=== PATIENT | female | born 1980 | race Caucasian/White ===

== ENCOUNTER → 2020-06-11 | Outpatient (CLI) | payer OTHER ==
[~2020-06-11] MED LIST: No meds per pt.
[2020-06-11 09:18] LABS: BASOPHILS % (AUTO) 1 % (0-1); EOSINOPHILS % (AUTO) 2 % (1-7); LYMPHOCYTES % (AUTO) 30 % (22-44); MEAN CORPUSCULAR HEMOGLOBIN 30.9 pg (27.0-34.8); MEAN CORPUSCULAR HGB CONC 33.4 g/dL (32.4-35.8); MEAN PLATELET VOLUME 9.8 fL (7.4-10.4); MONOCYTES % (AUTO) 9 % (2-9); NEUTROPHILS % (AUTO) 58 % (42-75); PLATELET COUNT 208 x10^3/uL (130-400); RED BLOOD COUNT 4.47 x10^6/uL (3.82-5.3); RED CELL DISTRIBUTION WIDTH 13.1 % (9.6-15.2)
[2020-06-11 09:23] LABS: ALBUMIN 3.9 g/dL (3.4-5.0); ANION GAP 5 mmol/L (5-15); CALCIUM 8.5 mg/dL (8.5-10.1); CHLORIDE 109 mmol/L (98-107); CREATININE 0.82 mg/dL (0.55-1.02)
[2020-06-11 09:25] LABS: MICROSCOPIC NOT IND
[2020-06-11 09:27] LABS: MD NO
[2020-06-11 09:28] LABS: ALANINE AMINOTRANSFERASE 30 U/L (12-78); ALKALINE PHOSPHATASE 57 U/L (45-117); BILIRUBIN,TOTAL 1.1 mg/dL (0.2-1.0); TOTAL PROTEIN 7.5 g/dL (6.4-8.2)
== END | disposition home or self-care (01) ==
LOC: STAR 08:07
PROVIDERS: ATTEND Obstetrics & Gynecology
DX: Z01.812 Encounter for preprocedural laboratory examination (principal); Z20.822 Contact with and (suspected) exposure to COVID-19; R10.2 Pelvic and perineal pain; D25.9 Leiomyoma of uterus, unspecified; N92.0 Excessive and frequent menstruation with regular cycle
CPT/HCPCS: 36415; 80053; 81003; 84702; 85025; U0003

== ENCOUNTER 2020-06-17 05:39 | Day surgery (SDC) | payer OTHER ==
[~2020-06-17] VITALS: Ht 167.6 cm; Wt 90.0 kg
[2020-06-17 06:35] VITALS: BP 127/85
[2020-06-17 06:40] LABS: HCG UR SG 1.021 (1.003-1.030)
[2020-06-17] MEDS ORDERED: DEXAMETHASONE 4 MG/ML, 1ML ONE (06:48)
[2020-06-17] MEDS ORDERED: SILVER NITRATE STICK TP ONE (06:48)
[2020-06-17] MEDS ORDERED: BUPIVACAINE/PF 0.25% ONE (06:48)
[2020-06-17] MEDS ORDERED: PROPOFOL 10 MG/ML, 20ML ONE (06:48)
[2020-06-17] MEDS ORDERED: SUCCINYLCHOLINE 20 MG/ML, 10ML ONE (06:48)
[2020-06-17] MEDS ORDERED: ROCURONIUM 10MG/ML,5ML ONE (06:48)
[2020-06-17] MEDS ORDERED: FENTANYL PF 100 MCG/2ML ONE ×3 (06:48→09:51)
[2020-06-17] MEDS ORDERED: CEFAZOLIN 1,000 MG ONE (06:48)
[2020-06-17] MEDS ORDERED: ONDANSETRON 2MG/ML, 2ML ONE (06:48)
[2020-06-17] MEDS ORDERED: GLYCOPYRROLATE 0.2MG/1ML, 5ML ONE (06:48)
[2020-06-17] MEDS ORDERED: MIDAZOLAM 1 MG/ML, 2ML ONE (06:48)
[2020-06-17] MEDS ORDERED: FLUORESCEIN SODIUM 500 MG/5 ML ONE (06:48)
[2020-06-17] MEDS ORDERED: NEOSTIGMINE 1 MG/ML, 10ML ONE (06:48)
[2020-06-17] MEDS ORDERED: CHLORHEXIDINE 15 ML UDC PO ONE (07:00)
[2020-06-17] MEDS ORDERED: LACTATED RINGERS 1,000 ML IV SCH (07:00)
[2020-06-17] MEDS ORDERED: OXYcodone 5 MG/5 ML ORAL.SOL UDC PO PRN (07:30)
[2020-06-17] MEDS ORDERED: ONDANSETRON 2MG/ML, 2ML IVPush PRN (07:30)
[2020-06-17] MEDS ORDERED: MEPERIDINE/PF 25MG/0.5ML IVPush PRN (07:30)
[2020-06-17] MEDS ORDERED: PROMETHAZINE 25 MG/ML, 1ML IVPush PRN (07:30)
[2020-06-17] MEDS ORDERED: HYDROmorphone 1 MG/ML, 1ML INJ IVPush PRN (07:30)
[2020-06-17] MEDS ORDERED: HYDROcodone/APAP 7.5-325MG/15ML UDC PO PRN (07:30)
[2020-06-17] MEDS ORDERED: EPINEPHRINE 1 MG/ML, 1ML ONE (08:05)
[2020-06-17] MEDS ORDERED: OXYC-302 PO (09:43)
[2020-06-17] MEDS ORDERED: OXYcodone 5 MG/5 ML ORAL.SOL UDC ONE (09:51)
[2020-06-17] MEDS: FENTANYL PF 100 MCG/2ML IV PRN ×2 (09:53→09:59)
[2020-06-17] MEDS ORDERED: HYDROmorphone 1 MG/ML, 1ML INJ ONE (10:02)
[2020-06-17] MEDS ORDERED: KETOROLAC 30 MG/1 ML ONE (15:55)
== END 2020-06-17 13:55 | disposition home or self-care (01) ==
LOC: OUT 05:39
PROVIDERS: ATTEND Obstetrics & Gynecology
DX: N94.6 Dysmenorrhea, unspecified (principal); D25.9 Leiomyoma of uterus, unspecified; E06.3 Autoimmune thyroiditis; Z79.899 Other long term (current) drug therapy; Z98.890 Other specified postprocedural states
CPT/HCPCS: 36415; 58552; 81025; 86850; 86900; 88307; J0171; J0330; J0690; J1100; J1170; J1885; J2250; J2405; J2704; J2710; J3010; J7120